=== PATIENT | male | born 1970 | race Caucasian/White ===

== ENCOUNTER 2022-10-16 09:56 | Outpatient (AMB) | payer BC, SELFPAY ==
[2022-10-16 10:08] VITALS: BP 161/96; PULSE 82; BMI 31.0
--- NOTE | 2022-10-16 10:08 | MHC.OFFVIS ---
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 male with past medical history hypertension obesity, prostate CA is here for initial consultation. He is accompanied by his twin sister. Patient was sent by his oncologist for evaluation. Patient has been complaining of severe abdominal pain and diarrhea for the last 3 weeks. Patient reports to have several loose stools a day. Patient denies melena, hematochezia, unintentional weight loss or like stools. Patient reports weight gain of 7 lb in 1 week. Patient reports that his bowel pattern changed. Now he has been constipated for the past 2 days. Patient reports abdominal discomfort to right and left lower quadrant. Patient had abdominal x-ray with no acute finding per patient. Patient also had ultrasound of abdomen that did not show any acute processes. Patient does drink alcohol daily, 3 beers a day. Patient is not on any particular diet. No diet restrictions. Eats everything mostly cheeseburgers, no fiber. He is not taking anything [id number] to help him move his bowels. Patient denies dyspepsia, dysphagia or odynophagia. Patient denies any nausea or vomiting. States that he is passing gas. Last bowel movement today. Reports to be very hard and small amount. Patient reports that he had colonoscopy last year, showed no polyps and he was told to return for colorectal screening in 10 years [facility] Medical History (Updated 10/16/22 @ 11:15 by Farzaneh Eubanks [facility]) HTN (hypertension) Low back pain Obesity Prostate cancer Surgical History (Updated 10/16/22 @ 10:19 by Larry Barrow) Hx of right knee surgery Hx of shoulder surgery Social History (Updated 10/16/22 @ 10:18 by Larry Barrow) Household Members: Significant Other Alcohol intake: current Alcohol intake frequency: 0-2 drinks per day Alcohol type: beer Patient Tobacco Use Status: Current everyday Tobacco user Cigarette Packs Per Day: 1 Cigarettes Per Day: 20 e-Cigarette/Vaping Use: Never Used Review of Systems Const Reports weight gain (7 lb in 1 week) and Denies weight loss ENT Reports no additional complaints, Denies dysphagia and Denies odynophagia Card Reports no additional complaints Resp Reports no additional complaints GI Reports abdominal pain (Lower abdomen), Denies belching, Denies melena, Reports bloating, Reports constipation, Denies dysphagia, Denies excessive flatus, Denies dyspepsia, Denies heartburn, Denies diarrhea, Denies loose stools, Denies nausea, Denies odynophagia and Denies vomiting Reports no additional complaints Musc Reports no additional complaints Neuro Reports no additional complaints Psych Reports no additional complaints Endo Reports no additional complaints Physical Exam Vital Signs: Last Vital Signs Pulse 82 10/16/22 10:08 BP 161/96 H 10/16/22 10:08 BMI result Body Mass Index 31.0 Const General: healthy appearing, no acute distress and well developed Nutritional Appearance: obese Orientation/consciousness: patient oriented x3 HEENT Head: Yes normal to inspection, Yes normocephalic and Yes atraumatic Face and sinus: Yes normal facial exam Mouth: Normal oral and palatal mucosa present Throat: Yes posterior oropharynx normal, Yes tonsils normal and Yes uvula midline Eyes General: appearance normal, both eyes and all related structures Neck Neck: Yes normal visual inspection, Yes full ROM and Yes trachea midline Thyroid: Thyroid normal Resp Effort & Inspection: normal respiratory effort, able to speak in complete sentences, no tracheal deviation and symmetric chest movement Auscultation: clear to auscultation bilaterally Cardio Rate: regular rate Heart sounds: S1 normal heart sound present and S2 normal heart sound present GI Inspection: Yes normal to inspection, Yes distended (Mild distension, soft) and Yes obesity Palpation (GI): Soft to palpation, not firm, nontender and No hepatosplenomegaly present Auscultation: normal bowel sounds General: Yes no CVA tenderness Back/Spine/Pelvis Back: no CVA tenderness Skin General skin exam: elasticity normal, turgor normal and dry skin Neuro General: patient oriented x3 Psych Appearance: grossly normal Mental Status: mental status grossly normal Speech and movement: Normal speech and movement present Affect: normal affect Assessment & Plan Assessment & Plan (1) Continuous severe abdominal pain: Code(s): R10.9 - Unspecified abdominal pain Plan: Reports lower abdominal discomfort. Patient states that he is constipated now. Will send script lactulose and MiraLax. We will due CT scan with IV and oral contrast to rule out diverticulitis, colitis, appendicitis. Patient does not have any nausea or vomiting. He has good bowel sounds, passing gas. Will check lipase, liver profile (2) Postprandial abdominal bloating: Code(s): R14.0 - Abdominal distension (gaseous) Plan: Postprandial abdominal bloating most likely related to patient not emptying his bowels completely. I will see him in 2 weeks, sooner on as needed basis. Patient will call the office if he will continue to be constipated despite current treatment. Patient is agreeable to this plan and verbalizes understanding of instructions. Both patient and his sister were given the opportunity to ask questions and all questions answered. Thank you for allowing me to participate in his care Orders: Orders Bilirubin Direct Today R17 - Unspecified jaundice Comprehensive Met. Panel Today K21.9 - Gastro-esophageal reflux disease without esophagitis Gamma Glutamyl Transpeptidase Today R74.8 - Abnormal levels of other serum enzymes Lipase Today R10.9 - Unspecified abdominal pain CT abdomen pelvis w IV con Today R10.9 - Unspecified abdominal pain Medications: New polyethylene glycol 3350 (Miralax) 17 grams PO DAILY 510 grams 2RF lactulose 10 grams (15 mL) PO BID 473 mL 0RF K59.09 - Other constipation Coding Level of Care Code New Pt Level 4 (56549) Diagnoses Continuous severe abdominal pain R10.9 Postprandial abdominal bloating R14.0 Time Spent (min) 45 Comment 30 minutes spent with patient and additional 15 minutes spent reviewing his records
== END 2022-10-16 10:45 | disposition home or self-care (01) ==
PROVIDERS: PCP Internal Medicine; Visit Provider Nurse Practitioner Family
DX: R10.9 Unspecified abdominal pain (principal); R14.0 Abdominal distension (gaseous)
CPT/HCPCS: 99204

== ENCOUNTER 2022-10-16 09:56 | Outpatient (REF) | payer BC, SELFPAY ==
[2022-10-16 12:23] LABS: Alanine Aminotransferase 10 U/L (0-40); Albumin Level 4.1 g/dL (3.5-5.0); Alkaline Phosphatase 108 U/L (39-117); Anion Gap 11 (12-20); Aspartate Amino Transferase 17 U/L (5-37); Bilirubin Direct 0.1 mg/dL (0.0-0.5); Bilirubin Total 0.3 mg/dL (0.0-1.0); Blood Urea Nitrogen 19 mg/dL (9-16); Calcium 9.4 mg/dL (8.4-10.2); Carbon Dioxide 25 mmol/L (22-29); Chloride 108 mmol/L (96-108); Estimated Glomerular Filt Rate > 60; Glucose Random 96 mg/dL (60-115); Lipase 18 U/L (8-78); Potassium 4.8 mmol/L (3.3-5.1); Sodium 139 mmol/L (135-145); Total Protein 7.1 g/dL (6.5-8.0)
[2022-10-16 13:23] LABS: Gamma Glutamyl Transpeptidase 37 U/L (11-51)
== END 2022-10-16 09:57 | disposition home or self-care (01) ==
LOC: HO.LAB 09:56
PROVIDERS: PCP Internal Medicine; Visit Provider Nurse Practitioner Family
DX: R10.9 Unspecified abdominal pain (principal); R74.8 Abnormal levels of other serum enzymes; K21.9 Gastro-esophageal reflux disease without esophagitis; R17 Unspecified jaundice; R14.0 Abdominal distension (gaseous)
CPT/HCPCS: 36415; 80053; 82248; 82977; 83690

== ENCOUNTER 2022-10-19 11:57 | Outpatient (REF) | payer BC, SELFPAY ==
--- NOTE | ~2022-10-19 | CT_ITS ---
EXAMINATION: CT ABDOMEN AND PELVIS WITH CONTRAST CLINICAL INFORMATION: Abdominal pain. COMPARISON: None available. TECHNIQUE: Multidetector volumetric images were obtained from the superior aspect of the liver through the pubic symphysis following administration 85 mL of Omnipaque 350 intravenous contrast. Sagittal and coronal reformatted images were obtained on the technologist's workstation. Oral contrast: No This CT examination was performed using dose optimization techniques as appropriate, variously including the following: *Automated exposure control *Adjustment of mA and/or kV according to patient size (this includes techniques or standardized protocols for targeted exams where dose is matched to indication/reason for exam; i.e. extremities or head) *Use of iterative reconstruction technique DLP: 739 mGy-cm FINDINGS: LUNG BASES: The visualized lung bases are unremarkable. LIVER, GALLBLADDER, AND BILIARY TREE: The liver is normal in size, shape, and attenuation. No focal hepatic lesion or biliary ductal dilatation is present. The gallbladder is unremarkable with no evidence of radiopaque gallstones, gallbladder wall thickening, or obvious pericholecystic inflammatory changes. PANCREAS: Unremarkable. SPLEEN: Unremarkable. ADRENAL GLANDS: Unremarkable. KIDNEYS AND URETERS: There is mild hydronephrosis of both kidneys with bilateral hydroureter. No renal or ureteral calculus. No renal mass. There is asymmetric enhancement of the parenchyma of the kidneys. The right kidney is denser enhancement compared the left kidney. BLADDER: Mild bladder wall thickening posteriorly. There is stranding density and lobular mass at the anterior wall the bladder concerning for metastatic disease. Sagittal image 46/47 series 3. PELVIS/GASTROINTESTINAL TRACT: There is a lobulated mass in the pelvis in the area the prostate. Suspicious for neoplasm. This measures 6 x 5 x 6 cm in size. This lobulated mass borders the rectum and sigmoid. The rectum and sigmoid are compressed by the mass and may be involving the midportion masses as there is loss of fat plane between the bowel and this mass. There is no obstruction or bowel. There are a few diverticula in the left colon and sigmoid but no diverticulitis. The appendix is normal. The small bowel loops are unremarkable. Stomach is normal. There is a small hiatal hernia. ABDOMINAL WALL: Small fat-containing right inguinal hernia. LYMPH NODES: There are enlarged lymph nodes consistent with metastatic disease. There are lymph nodes in the right and left pelvic sidewall the low pelvis measuring up to about 2 cm. Largest lymph nodes along the iliac chain in the retroperitoneum and periaortic or caval region of the retroperitoneum. There are lymph nodes around the left renal vascular pedicle, greater on the left than the right. There is a borderline enlarged lymph node in the retrocrural region. VASCULAR: There is normal enhancement of the vasculature of the abdomen and the pelvis. Small volume of scattered vascular calcifications of aorta and iliac arteries. As noted above there is diminished density in the left kidney parenchyma relative to the right raising question of compromised perfusion of the left kidney though the renal artery and renal vein are well opacified on this exam. OSSEOUS STRUCTURES: Extensive osseous metastatic disease throughout the entire visualized skeleton with osteoblastic metastatic lesions. No acute fracture. CT/CT abdomen pelvis w IV con IMPRESSION: 1. Lobulated mass in the pelvis in the area of the prostate suspicious for neoplasm. 2. Pelvic and retroperitoneal lymphadenopathy consistent with metastatic disease. 3. Extensive osseous metastatic disease. 4. Mild hydronephrosis of both kidneys. No renal or ureteral calculus. There is diminished perfusion of the left kidney relative to the right raising question of compromised perfusion of the left kidney though the renal artery and renal vein are well opacified on this exam. Hydronephrosis may be causing the decreased perfusion rather than vascular compromise. Enlarged lymph nodes are greater in the left retroperitoneum and pelvis relative to the right side of the retroperitoneum and pelvis. Fleischner guidelines were followed. This result was discussed with Nurse Cara Travis on 10/19/2022, 3:30 PM and it was ascertained that the content and urgency of the report was understood at the time of direct communication.
[2022-10-19] MEDS: iohexoL 350 MG/ML 100 ML INFUS..BTL IV (14:07)
[2022-10-19] MEDS: Barium Sulfate Oral (Mocha) 450 ML ORAL.SUSP PO ×2 (14:09→14:10)
== END 2022-10-19 11:58 | disposition home or self-care (01) ==
LOC: HO.CT 11:57
PROVIDERS: PCP Internal Medicine; Visit Provider Nurse Practitioner Family
DX: R10.9 Unspecified abdominal pain (principal)
CPT/HCPCS: 74177; Q9967

== ENCOUNTER 2022-10-26 11:51 | Day surgery (SDC) | payer BC, SELFPAY ==
[2022-10-26] MEDS: Lactated Ringers 1,000 ML 50 ML IVCONT (13:01)
[2022-10-26] MEDS: Albuterol Sulfate (0.083%) 2.5 MG/3 ML VIAL.NEB INHALE (13:03)
[2022-10-26 13:05] VITALS: PULSE 76; RESP 16; O2SAT 98
[2022-10-26 13:17] VITALS: BP 179/82; PULSE 78; RESP 20; TEMP 36.1; O2SAT 95
[2022-10-26 13:19] VITALS: BMI 31.9
[2022-10-26 13:27] VITALS: BP 142/87
--- NOTE | 2022-10-26 13:51 | MHC.SHP ---
Pre-Procedural Eval Section A Date of Service: 10/26/22 The History & Physical has been completed within 30 days and I have reviewed it.: Yes Section B Chief Complaint: Abdominal distension (gaseous),abdominal pain Allergies: Allergies Allergy/AdvReac Type Severity Reaction Status Date / Time Penicillins [PENICILLINS] Allergy Mild HIVES Verified 10/26/22 13:02 sulfamethoxazole Allergy Unknown UNKNOWN Verified 10/26/22 13:02 [From BACTRIM] trimethoprim [From BACTRIM] Allergy Unknown UNKNOWN Verified 10/26/22 13:02 Plan Diagnosis/Plan: Unchanged I have reviewed the history and physical and performed a pertinent physical examination on my patient. No changes have occurred unless specified. Time Spent With Patient Time: Total time managing care of this patient today ____ minutes.
--- NOTE | 2022-10-26 13:54 | HO.ANESPROP2 ---
[facility] Past Medical History Medical History COPD (chronic obstructive pulmonary disease) History of swelling of feet HTN (hypertension) Jaundice Low back pain Obesity Prostate cancer Weight gain Family History Family history of problems with anesthesia: No Surgical History Surgical History Hx of colonoscopy Hx of esophagogastroduodenoscopy Hx of hernia repair Hx of right knee surgery Hx of shoulder surgery Hx of wisdom tooth extraction History of Problems with Anesthesia: No Social History Social History Household Members: Significant Other Alcohol intake: current Alcohol intake frequency: 3 or more drinks per day Alcohol type: beer Patient Tobacco Use Status: Current everyday Tobacco user Cigarette Packs Per Day: 1 Cigarettes Per Day: 20 e-Cigarette/Vaping Use: Never Used Are you DNR?: No Advance Directives: No Advance Directives Information Provided: Yes Meds Allergies Allergy/AdvReac Type Severity Reaction Status Date / Time Penicillins [PENICILLINS] Allergy Mild HIVES Verified 10/26/22 13:02 sulfamethoxazole Allergy Unknown UNKNOWN Verified 10/26/22 13:02 [From BACTRIM] trimethoprim [From BACTRIM] Allergy Unknown UNKNOWN Verified 10/26/22 13:02 Active Medications: Current Medications Albuterol Sulfate (Albuterol Sulfate (0.083%) 2.5 Mg/3 Ml Vial.Neb) 2.5 mg INHALE ONCE PRN PRN Reason: Shortness of Breath/Wheezing Last Admin: 10/26/22 13:03 Dose: 2.5 mg Lactated Ringer's (Lr) 1,000 mls @ 50 mls/hr IVCONT .Q20H IAN Last Admin: 10/26/22 13:01 Dose: 50 mls/hr Home Medications Medication Instructions Recorded Confirmed Last Taken Type abiraterone 500 mg tablet 1,000 mg PO DAILY 10/16/22 10/26/22 10/26/22 History gabapentin 300 mg capsule 300 mg PO TID 10/16/22 10/26/22 10/26/22 History lisinopril 20 mg tablet 20 mg PO DAILY 10/16/22 10/26/22 10/26/22 History tamsulosin 0.4 mg capsule 0.4 mg PO DAILY 10/16/22 10/26/22 10/26/22 History acetaminophen 325 mg tablet 325 mg PO QID PRN Pain 10/26/22 10/26/22 10/09/22 History (Tylenol) fluticasone propionate 50 1 spray intranasal DAILY 10/26/22 10/26/22 10/09/22 History mcg/actuation nasal spray,suspension ipratropium 20 mcg-albuterol 100 1 puff inhalation QID 10/26/22 10/26/22 10/25/22 History mcg/actuation mist for inhalation (Combivent Respimat) oxycodone 20 mg tablet,crush 20 mg PO BID 10/26/22 10/26/22 10/17/22 History resistant,extended release 12 hr (OxyContin) Exam Exam Date and Time: October 26, 2022 1354 Height,Weight and Vital Signs: Height 5 ft 8 in Weight 95.254 kg Last Vital Signs Temp 97 F 10/26/22 13:17 Pulse 78 10/26/22 13:17 Resp 20 10/26/22 13:17 BP 142/87 H 10/26/22 13:27 Pulse Ox 95 10/26/22 13:17 O2 Del Method Room Air 10/26/22 13:17 Airway Mallampati Class: III TM Dist: >3cm Neck ROM: Full Loose/Missing/Broken Teeth: No (rrr) Lungs: scattered rales and wheezes Assessment and Plan Final Anesthetic Review Family History of Problems with Anesthesia: No History of Problems with Anesthesia: No NPO: Yes ASA Class: IV Final Preanesthetic Review: No Changes in Pt Med Stat, Meds/Allgs Chart Reviewed, Consent Obtained/Reviewed and Anes Risks/Benef Reviewed Patient Risk: Intermediate Procedure Risk: Low Anesthetic Plan Anesthetic Plan: MAC: Disposition: Standard PACU
[2022-10-26 14:52] VITALS: BP 129/61; PULSE 90; RESP 16; TEMP 37.3; O2SAT 96
--- NOTE | 2022-10-26 14:52 | P.OP_ITS ---
Operative Note Operative Note Date of Service: 10/26/22 Narrative: Procedure:?Esophagogastroduodenoscopy and colonoscopy Endoscopist:?Mer Drummond MD Indication:?Abd pain, rectal bleeding Anesthesia Provider: Malorie Hernandez CRNA Anesthesia Type:?MAC Instrument:?Olympus GIF-H190, PCF-H190L EGD Procedure:?? The procedure, indications, preparation and potential complications were reviewed with the patient, who indicated understanding and gave written informed consent to proceed. A physical exam was performed. The endoscope was introduced through the mouth, and advanced to the second part of duodenum. The mucosa was carefully examined on slow withdrawal of the endoscope.? There were no immediate complications.? Patient tolerated the procedure well. EGD Findings:? * Esophagus:? Normal mucosa noted in the entire esophagus.? The Z-line is at 40 cm.? * Stomach:? Normal gastric mucosa. Retroflexion was performed in the fundus and showed Hill grade II hiatal hernia. Cold forceps mapping biopsies were taken as per Elisabeth protocol for histology given hx of metastatic neoplasm. * Duodenum:? Erythema and edema of the duodenal bulb consistent with peptic duodenitis.? Cold forceps biopsies were taken to rule out celiac disease. Colonoscopy Procedure:? The patient was then turned for the colonoscopy. A digital rectal exam was performed which was normal.? A distal attachment cap was affixed to the tip of the scope and the colonoscope was then inserted through the anus and advanced through the colon to the cecum at 75 cm and terminal ileum. Appendiceal orifice and ileocecal valve were identified. Mucosa was carefully examined under high definition white light as the instrument was slowly withdrawn in a retrograde panoramic fashion. Retroflexion could not be performed in rectum due to narrowed rectal vault, see below. The procedure was not difficult. There were no immediate obvious complications. The quality of the prep was BBPS: 2+2+3 = adequate Withdrawal time: 12 minutes Limitations: No limitation. Findings: Mucosa: Extrinsic compression effect was noted in the proximal rectum and distal sigmoid colon but PCF scope traversed easily. Normal mucosa to cecum and terminal ileum.? Protruding lesions: * Medium internal hemorrhoids without stigmata of recent bleeding. Excavated lesions: * Scattered diverticulosis of left colon. Impression: 1. Normal esophageal mucosa 2. Normal stomach mucosa (mapping biopsy) 3. Peptic duodenitis (biopsy) 4. Extrinsic compression of rectosigmoid 5. Normal colon and terminal ileum mucosa 6. Diverticulosis 7. Internal hemorrhoids Recommendations:?? * Await pathology results.? * Repeat colonoscopy for asymptomatic colon cancer screening in 10 years depending on overall clinical course. * Of note - pt appeared jaundiced on exam so LFTs have been ordered.
[2022-10-26 15:07] VITALS: BP 128/95; PULSE 92; RESP 18; TEMP 37.1; O2SAT 98
[2022-10-26 15:45] LABS: Alanine Aminotransferase 12 U/L (0-40); Albumin Level 3.9 g/dL (3.5-5.0); Alkaline Phosphatase 119 U/L (39-117); Aspartate Amino Transferase 19 U/L (5-37); Bilirubin Direct 0.1 mg/dL (0.0-0.5); Bilirubin Total 0.3 mg/dL (0.0-1.0)
== END 2022-10-26 14:55 | disposition home or self-care (01) ==
PROVIDERS: PCP Internal Medicine; Visit Provider Internal Medicine
PROC: (CPT 45378; principal; 2022-10-26 14:30)
DX: K62.5 Hemorrhage of anus and rectum (principal); K57.30 Diverticulosis of large intestine without perforation or abscess without bleeding; K62.4 Stenosis of anus and rectum; K64.8 Other hemorrhoids; K59.09 Other constipation; R10.9 Unspecified abdominal pain; R14.0 Abdominal distension (gaseous); K29.80 Duodenitis without bleeding; K21.9 Gastro-esophageal reflux disease without esophagitis; K44.9 Diaphragmatic hernia without obstruction or gangrene; C61 Malignant neoplasm of prostate; J44.9 Chronic obstructive pulmonary disease, unspecified; I10 Essential (primary) hypertension; E66.9 Obesity, unspecified; Z68.31 Body mass index [BMI] 31.0-31.9, adult; R74.8 Abnormal levels of other serum enzymes; R17 Unspecified jaundice; Z79.51 Long term (current) use of inhaled steroids; Z79.899 Other long term (current) drug therapy; Z88.0 Allergy status to penicillin; Z88.2 Allergy status to sulfonamides; F17.210 Nicotine dependence, cigarettes, uncomplicated
CPT/HCPCS: 45378; 43239; 36415; 80076; 88305; 88342; 94640

== ENCOUNTER → 2022-10-26 11:51 | Outpatient (BNV) | payer BC, SELFPAY | PROVIDERS: PCP Internal Medicine; Visit Provider Internal Medicine | DX: R10.9 Unspecified abdominal pain (principal); K62.5 Hemorrhage of anus and rectum; K64.8 Other hemorrhoids; K57.30 Diverticulosis of large intestine without perforation or abscess without bleeding | CPT/HCPCS: 43239; 45378 ==

== ENCOUNTER 2022-10-30 09:20 | Outpatient (AMB) | payer BC, SELFPAY ==
[2022-10-30 09:30] VITALS: BP 175/98; PULSE 75; BMI 30.7
--- NOTE | 2022-10-30 09:30 | A.OFFVIS_ITS ---
Intake Vital Signs 10/30/22 09:30 Height 5 ft 8 in Weight 201 lb 15.095 oz BMI 30.7 BP 175/98 H Blood Pressure Location Lt brachial Position Sitting Pulse 75 Intake Visit Reasons: 2 week follow up Intake Note: Paulino presents in office as a est.patient for a 2week f/u for abdominal pain. 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: No Accompanied by: Significant Other Allergies Penicillins [PENICILLINS] Allergy (Mild, Verified 10/30/22 09:30) HIVES sulfamethoxazole [From BACTRIM] Allergy (Unknown, Verified 10/30/22 09:30) UNKNOWN trimethoprim [From BACTRIM] Allergy (Unknown, Verified 10/30/22 09:30) UNKNOWN Medication List - Last Reconciled 10/30/22 by Farzaneh Eubanks, [facility]- abiraterone 1,000 mg PO DAILY acetaminophen (Tylenol) 325 mg PO QID PRN docusate sodium 200 mg PO DAILY fluticasone propionate 50 mcg/actuation 1 spray intranasal DAILY gabapentin 300 mg PO TID ipratropium-albuterol 20-100 mcg/actuation (Combivent Respimat) 1 puff inhalation QID lisinopril 20 mg PO DAILY oxycodone ER (OxyContin) 20 mg PO BID polyethylene glycol 3350 (Miralax) 17 grams PO DAILY sennosides (Natural Senna Laxative) 17.2 mg (2 x 8.6 mg) PO BEDTIME tamsulosin 0.4 mg PO DAILY HPI 2 week follow up HPI Details LAST VISIT Continuous severe abdominal pain Reports lower abdominal discomfort. Patient states that he is constipated now. Will send script lactulose and MiraLax. We will due CT scan with IV and oral contrast to rule out diverticulitis, colitis, appendicitis. Patient does not have any nausea or vomiting. He has good bowel sounds, passing gas. Will check lipase, liver profile Postprandial abdominal bloating Postprandial abdominal bloating most likely related to patient not emptying his bowels completely. I will see him in 2 weeks, sooner on as needed basis. Patient will call the office if he will continue to be constipated despite current treatment. Patient is agreeable to this plan and verbalizes understanding of instructions. Both patient and his sister were given the opportunity to ask questions and all questions answered. ? Thank you for allowing me to participate in his care Plan Orders Orders Bilirubin Direct Today R17 Comprehensive Met. Panel Today K21.9 Gamma Glutamyl Transpeptidase Today R74.[address] abdomen pelvis w IV con Today R10.9 Medications New polyethylene glycol 3350 (Miralax) 17 grams PO DAILY 510 grams 2RF lactulose 10 grams (15 mL) PO BID 473 mL 0RF K59.09 UPPER ENDOSCOPY AND COLONOSCOPY EGD Procedure:?? The procedure, indications, preparation and potential complications were reviewed with the patient, who indicated understanding and gave written informed consent to proceed. A physical exam was performed. The endoscope was introduced through the mouth, and advanced to the second part of duodenum. The mucosa was carefully examined on slow withdrawal of the endoscope.? There were no immediate complications.? Patient tolerated the procedure well. EGD Findings:? * Esophagus:? Normal mucosa noted in the entire esophagus.? The Z-line is at 40 cm.? * Stomach:? Normal gastric mucosa. Retroflexion was performed in the fundus and showed Hill grade II hiatal hernia. Cold forceps mapping biopsies were taken as per Elisabeth protocol for histology given hx of metastatic neoplasm. * Duodenum:? Erythema and edema of the duodenal bulb consistent with peptic duodenitis.? Cold forceps biopsies were taken to rule out celiac disease. Colonoscopy Procedure:? The patient was then turned for the colonoscopy. A digital rectal exam was performed which was normal.? A distal attachment cap was affixed to the tip of the scope and the colonoscope was then inserted through the anus and advanced through the colon to the cecum at 75 cm and terminal ileum. Appendiceal orifice and ileocecal valve were identified. Mucosa was carefully examined under high definition white light as the instrument was slowly withdrawn in a retrograde panoramic fashion. Retroflexion could not be performed in rectum due to narrowed rectal vault, see below. The procedure was not difficult. There were no immediate obvious complications. The quality of the prep was BBPS: 2+2+3 = adequate Withdrawal time: 12 minutes Limitations: No limitation. Findings: Mucosa: Extrinsic compression effect was noted in the proximal rectum and distal sigmoid colon but PCF scope traversed easily. Normal mucosa to cecum and terminal ileum.? Protruding lesions: * Medium internal hemorrhoids without stigmata of recent bleeding. Excavated lesions: * Scattered diverticulosis of left colon. Impression: 1. Normal esophageal mucosa 2. Normal stomach mucosa (mapping biopsy) 3. Peptic duodenitis (biopsy) 4. Extrinsic compression of rectosigmoid 5. Normal colon and terminal ileum mucosa 6. Diverticulosis 7. Internal hemorrhoids Recommendations:?? * Await pathology results.? * Repeat colonoscopy for asymptomatic colon cancer screening in 10 years depending on overall clinical course. * Of note - pt appeared jaundiced on exam so LFTs have been ordered. TODAY'S VISIT: Patient is here today for follow-up and to discuss colonoscopy results. Patient was found to have no polyps. Patient continues to have severe abdominal discomfort usually in the left lower quadrant. CT of abdomen showed large pressing prostate tumor. Most likely the reason why patient is unable to evacuate his bowels well. Long discussion with patient and his sister. They will go back to [facility] to see Oncology for 2nd opinion as well as General surgery. Prostate CA spread to lymph nodes as well as fine. Patient's pain could be related to lymph nodes, tumor pressing on a nerve pathway. Patient will need to be evaluated with MRI possibly. CT scan results discussed with general surgery Dr. Trinh. Colonoscopy and normal lab results discussed with Dr. Drummond who performed the procedure. Patient had normal liver function tests. Patient denies melena, hematochezia, unintentional weight loss or ribbon like stools. Patient reports that he is not drinking alcohol anymore. [facility] Medical History COPD (chronic obstructive pulmonary disease) History of swelling of feet HTN (hypertension) Jaundice Low back pain Obesity Prostate cancer Weight gain Surgical History Hx of colonoscopy Hx of esophagogastroduodenoscopy Hx of hernia repair Hx of right knee surgery Hx of shoulder surgery Hx of wisdom tooth extraction Social History Household Members: Significant Other Alcohol intake: current Alcohol intake frequency: 3 or more drinks per day Alcohol type: beer Patient Tobacco Use Status: Current everyday Tobacco user Cigarette Packs Per Day: 1 Cigarettes Per Day: 20 e-Cigarette/Vaping Use: Never Used Review of Systems Const Denies weight gain and Denies weight loss ENT Reports no additional complaints, Denies dysphagia and Denies odynophagia Card Reports no additional complaints Resp Reports no additional complaints GI Reports abdominal pain, Denies belching, Denies melena, Reports bloating, Denies change in bowel habits, Reports constipation, Denies dysphagia, Denies excessive flatus, Denies dyspepsia, Denies heartburn, Denies diarrhea, Denies loose stools, Denies nausea, Denies odynophagia and Denies vomiting Reports no additional complaints Musc Reports no additional complaints Neuro Reports no additional complaints Psych Reports no additional complaints Endo Reports no additional complaints Physical Exam Vital Signs: Last Vital Signs Pulse 75 10/30/22 09:30 BP 175/98 H 10/30/22 09:30 BMI result Body Mass Index 30.7 Const General: well developed, alert and in distress Nutritional Appearance: obese Orientation/consciousness: patient oriented x3 HEENT Head: Yes normal to inspection, Yes normocephalic and Yes atraumatic Face and sinus: Yes normal facial exam Mouth: Normal oral and palatal mucosa present Throat: Yes posterior oropharynx normal, Yes tonsils normal and Yes uvula midline Eyes General: appearance normal, both eyes and all related structures Neck Neck: Yes normal visual inspection, Yes full ROM and Yes trachea midline Thyroid: Thyroid normal Resp Effort & Inspection: normal respiratory effort, able to speak in complete sentences, no tracheal deviation and symmetric chest movement Auscultation: clear to auscultation bilaterally Cardio Rate: regular rate Heart sounds: S1 normal heart sound present and S2 normal heart sound present GI Inspection: Yes normal to inspection, No distended and Yes obesity Palpation (GI): Soft to palpation, not firm, nontender and No hepatosplenomegaly present Auscultation: normal bowel sounds General: Yes no CVA tenderness Back/Spine/Pelvis Back: no CVA tenderness Skin General skin exam: elasticity normal, turgor normal and dry skin Neuro General: patient oriented x3 Psych Appearance: grossly normal Mental Status: mental status grossly normal Speech and movement: Normal speech and movement present Affect: normal affect Results Reviewed Results Reviewed: CT SCAN RESULTS 10/19/2022 FINDINGS: LUNG BASES: The visualized lung bases are unremarkable.? LIVER, GALLBLADDER, AND BILIARY TREE: The liver is normal in size, shape, and attenuation. No focal hepatic lesion or biliary ductal dilatation is present. The gallbladder is unremarkable with no evidence of radiopaque gallstones, gallbladder wall thickening, or obvious pericholecystic inflammatory changes.? PANCREAS: Unremarkable.? SPLEEN: Unremarkable.? ADRENAL GLANDS: Unremarkable.? KIDNEYS AND URETERS: There is mild hydronephrosis of both kidneys with bilateral hydroureter. No renal or ureteral calculus. No renal mass. There is asymmetric enhancement of the parenchyma of the kidneys. The right kidney is denser enhancement compared the left kidney.? BLADDER: Mild bladder wall thickening posteriorly. There is stranding density and lobular mass at the anterior wall the bladder concerning for metastatic disease. Sagittal image 46/47 series 3. PELVIS/GASTROINTESTINAL TRACT: There is a lobulated mass in the pelvis in the area the prostate. Suspicious for neoplasm. This measures 6 x 5 x 6 cm in size. This lobulated mass borders the rectum and sigmoid. The rectum and sigmoid are compressed by the mass and may be involving the midportion masses as there is loss of fat plane between the bowel and this mass. There is no obstruction or bowel. There are a few diverticula in the left colon and sigmoid but no diverticulitis. The appendix is normal. The small bowel loops are unremarkable. Stomach is normal. There is a small hiatal hernia. ABDOMINAL WALL: Small fat-containing right inguinal hernia.? LYMPH NODES: There are enlarged lymph nodes consistent with metastatic disease. There are lymph nodes in the right and left pelvic sidewall the low pelvis measuring up to about 2 cm. Largest lymph nodes along the iliac chain in the retroperitoneum and periaortic or caval region of the retroperitoneum. There are lymph nodes around the left renal vascular pedicle, greater on the left than the right. There is a borderline enlarged lymph node in the retrocrural region. VASCULAR: There is normal enhancement of the vasculature of the abdomen and the pelvis. Small volume of scattered vascular calcifications of aorta and iliac arteries. As noted above there is diminished density in the left kidney parenchyma relative to the right raising question of compromised perfusion of the left kidney though the renal artery and renal vein are well opacified on this exam. OSSEOUS STRUCTURES: Extensive osseous metastatic disease throughout the entire visualized skeleton with osteoblastic metastatic lesions. No acute fracture.? CT/CT abdomen pelvis w IV con IMPRESSION: 1.? Lobulated mass in the pelvis in the area of the prostate suspicious for neoplasm. 2.? Pelvic and retroperitoneal lymphadenopathy consistent with metastatic disease. 3.? Extensive osseous metastatic disease. 4.? Mild hydronephrosis of both kidneys. No renal or ureteral calculus. There is diminished perfusion of the left kidney relative to the right raising question of compromised perfusion of the left kidney though the renal artery and renal vein are well opacified on this exam. Hydronephrosis may be causing the decreased perfusion rather than vascular compromise. Enlarged lymph nodes are greater in the left retroperitoneum and pelvis relative to the right side of the retroperitoneum and pelvis. ? Laboratory Tests 10/16/22 10/26/22 11:15 15:23 BUN 19 H Creatinine 1.13 Total Bilirubin 0.3 Direct Bilirubin 0.1 AST 19 ALT 12 Lipase 18 Assessment & Plan Assessment & Plan (1) Continuous severe abdominal pain: Code(s): R10.9 - Unspecified abdominal pain Plan: Patient continues with severe abdominal discomfort. Most likely related to constipation as well as increased lymph nodes, mass pressing against nerve pathway. Patient does have pain that radiates to his lower extremities. Patient also has increase swelling into his left lower extremity. CT scan showed lymph node pressing on left renal artery and vein. Patient will meet MRI with or without IV contrast to better differentiate. (2) Postprandial abdominal bloating: Code(s): R14.0 - Abdominal distension (gaseous) Plan: Postprandial abdominal bloating. Discussed with patient diet elimination. Patient will avoid drinking beer. Patient will need to improve his Bowel movements, increase fluid intake and activity to promote better bowel motility. (3) Constipation: Code(s): K59.00 - Constipation, unspecified Qualifiers: Constipation type: outlet dysfunction constipation Qualified Code(s): K59.02 - Outlet dysfunction constipation Plan: Prostate mass is pressing on patient's rectum and patient has a difficulty of moving his bowels. Will have patient continue taking Colace 2 capsules daily may increase to twice a day if necessary. Patient can take MiraLax as well as senna. Patient is taking oxycodone for pain relief that might be vomiting him up as well. Patient might need to go and see a surgeon to have palliative colostomy. Patient will follow-up with oncologist in [place] as well as 1 in [place] that he originally saw. Patient will return in our office in 4 weeks, sooner on as needed basis. Both patient and his twin sister are agreeable to plan of care and verbalizes understanding of instructions. They were given the opportunity to ask questions and all questions answered. Thank you for allowing me to participate in his care Orders: Orders MR pelvis wo/w con 10/30/22 R10.9 - Unspecified abdominal pain Complete Blood Count no Diff 10/30/22 R10.9 - Unspecified abdominal pain Coding Level of Care Code Est Pt Level 5 (25650) Diagnoses Continuous severe abdominal pain R10.9 Postprandial abdominal bloating R14.0 Constipation K59.02 Constipation type: outlet dysfunction constipation Time Spent (min) 55 Comment 30 min spent with patient and add 25 min spent rev. his records and cons. w/ GS and GI
== END 2022-10-30 10:16 | disposition home or self-care (01) ==
PROVIDERS: PCP Internal Medicine; Visit Provider Nurse Practitioner Family
DX: K59.02 Outlet dysfunction constipation (principal)
CPT/HCPCS: 99215

== ENCOUNTER 2022-10-30 09:20 | Outpatient (REF) | payer BC, SELFPAY ==
[2022-10-30 11:51] LABS: Hematocrit 36.6 % (42.0-52.0); Hemoglobin 12.1 g/dl (14.0-18.0); Mean Corpuscular HGB Conc 33.1 g/dl (31.0-36.0); Mean Corpuscular Hemoglobin 33.3 pg (27.0-33.0); Mean Corpuscular Volume 100.8 fL (80.0-98.0); Mean Platelet Volume 9.6 fL (9.4-12.4); Platelet Count 305 X10*3/uL (160-400); Red Blood Count 3.63 X10*6/uL (4.60-5.80); Red Cell Distribution Width 11.4 % (11.0-16.0); White Blood Count 8.8 X10*3/uL (4.8-10.8)
== END 2022-10-30 09:21 | disposition home or self-care (01) ==
LOC: HO.LAB 09:20
PROVIDERS: PCP Internal Medicine; Visit Provider Nurse Practitioner Family
DX: R10.9 Unspecified abdominal pain (principal); R14.0 Abdominal distension (gaseous); K59.02 Outlet dysfunction constipation; Z79.899 Other long term (current) drug therapy
CPT/HCPCS: 36415; 85027

== ENCOUNTER 2022-11-28 09:37 | Outpatient (AMB) | payer BC, SELFPAY ==
[2022-11-28 09:44] VITALS: BP 113/73; PULSE 76; BMI 27.6
--- NOTE | 2022-11-28 09:44 | A.OFFVIS_ITS ---
Intake Vital Signs 11/28/22 09:44 Height 5 ft 8 in Weight 181 lb 10.574 oz BMI 27.6 BP 113/73 Blood Pressure Location Lt brachial Position Sitting Pulse 76 Intake Visit Reasons: 4 week follow up Intake Note: Paulino presents in office as a est.patient for a f/u for Constipation PT CC: pt reports having abdominal pain , constipation pt denies any other GI Issues Instrument Room Technician Required: No Accompanied by: Self / Same As Patient Allergies Penicillins [PENICILLINS] Allergy (Mild, Verified 11/28/22 09:45) HIVES sulfamethoxazole [From BACTRIM] Allergy (Unknown, Verified 11/28/22 09:45) UNKNOWN trimethoprim [From BACTRIM] Allergy (Unknown, Verified 11/28/22 09:45) UNKNOWN HPI 4 week follow up HPI Details LAST VISIT Continuous severe abdominal pain Patient continues with severe abdominal discomfort. Most likely related to constipation as well as increased lymph nodes, mass pressing against nerve pathway. Patient does have pain that radiates to his lower extremities. Patient also has increase swelling into his left lower extremity. CT scan showed lymph node pressing on left renal artery and vein. Patient will meet MRI with or without IV contrast to better differentiate. Postprandial abdominal bloating Postprandial abdominal bloating. Discussed with patient diet elimination. Patient will avoid drinking beer. Patient will need to improve his Bowel movements, increase fluid intake and activity to promote better bowel motility. Constipation Prostate mass is pressing on patient's rectum and patient has a difficulty of moving his bowels. Will have patient continue taking Colace 2 capsules daily may increase to twice a day if necessary. Patient can take MiraLax as well as senna. Patient is taking oxycodone for pain relief that might be vomiting him up as well. Patient might need to go and see a surgeon to have palliative colostomy. Patient will follow-up with oncologist in [place] as well as 1 in [facility] at he originally saw. Patient will return in our office in 4 weeks, sooner on as needed basis. Both patient and his twin sister are agreeable to plan of care and verbalizes understanding of instructions. They were given the opportunity to ask questions and all questions answered. ? Thank you for allowing me to participate in his care Plan Orders Orders MR pelvis wo/w con 10/30/22 R10.9 Complete Blood Count no Diff 10/30/22 R10.9 TODAY'S VISIT: Patient is here today follow-up. Patient has not done his MRI yet as he was admitted to the hospital. Patient stated at [facility] and discharged last week. He went into acute kidney failure. Started his radiation for prostate C A, however radiation was soft as the mass was too big. Patient currently is on chemotherapy. Port-A-Cath was placed while he was in the hospital. Patient was unable to urinate. Nephrostomy tubes were placed. Patient is under care of oncologist in [place]. Currently patient reports that he is moving his bowels better. Denies melena, hematochezia, unintentional weight loss or ribbon like stools. Patient reports less bloating. Patient denies any nausea or vomiting. Denies any other GI concerning symptoms. [facility] Medical History COPD (chronic obstructive pulmonary disease) History of swelling of feet HTN (hypertension) Jaundice Low back pain Obesity Prostate cancer Weight gain Surgical History Hx of colonoscopy Hx of esophagogastroduodenoscopy Hx of hernia repair Hx of right knee surgery Hx of shoulder surgery Hx of wisdom tooth extraction Social History Household Members: Significant Other Alcohol intake: current Alcohol intake frequency: 3 or more drinks per day Alcohol type: beer Patient Tobacco Use Status: Current everyday Tobacco user Cigarette Packs Per Day: 1 Cigarettes Per Day: 20 e-Cigarette/Vaping Use: Never Used Review of Systems Const Denies weight gain and Denies weight loss ENT Reports no additional complaints, Denies dysphagia and Denies odynophagia Card Reports no additional complaints Resp Reports no additional complaints GI Reports abdominal pain, Denies belching, Denies melena, Denies bloating, Reports constipation, Denies dysphagia, Denies excessive flatus, Denies dyspepsia, Rashi es heartburn, Denies diarrhea, Denies loose stools, Denies nausea, Denies odynophagia and Denies vomiting Details: Patient reports nephrostomy tube, draining clear yellow urine. No fever no chills, denies flank pain Musc Reports no additional complaints Neuro Reports no additional complaints Psych Reports no additional complaints Endo Reports no additional complaints Physical Exam Vital Signs: BMI result Body Mass Index 27.6 Const General: healthy appearing, no acute distress and well developed Nutritional Appearance: well nourished Orientation/consciousness: patient oriented x3 HEENT Head: Yes normal to inspection, Yes normocephalic and Yes atraumatic Face and sinus: Yes normal facial exam Mouth: Normal oral and palatal mucosa present Throat: Yes posterior oropharynx normal, Yes tonsils normal and Yes uvula midline Eyes General: appearance normal, both eyes and all related structures Neck Neck: Yes normal visual inspection, Yes full ROM and Yes trachea midline Thyroid: Thyroid normal Resp Effort & Inspection: normal respiratory effort, able to speak in complete sentences, no tracheal deviation and symmetric chest movement Auscultation: clear to auscultation bilaterally Cardio Rate: regular rate Heart sounds: S1 normal heart sound present and S2 normal heart sound present GI Inspection: Yes normal to inspection and No distended Palpation (GI): Soft to palpation, not firm, nontender and No hepatosplenomegaly present Auscultation: normal bowel sounds Other: Bilateral flanks nephrostomy tubes draining clear yellow urine Skin General skin exam: elasticity normal, turgor normal and dry skin Neuro General: patient oriented x3 Psych Appearance: grossly normal Mental Status: mental status grossly normal Speech and movement: Normal speech and movement present Assessment & Plan Assessment & Plan (1) Postprandial abdominal bloating: Code(s): R14.0 - Abdominal distension (gaseous) Plan: Continue eating smaller meals and more often. Low FODMAP diet discussed with patient. Patient will need to move his bowels daily. Reports improvement in symptoms. (2) Constipation: Code(s): K59.00 - Constipation, unspecified Qualifiers: Constipation type: drug induced constipation Qualified Code(s): K59.03 - Drug induced constipation Plan: Continue MiraLax Colace and senna. Patient was also encouraged to increase fluid intake. Please get records from last hospitalization at [facility]. Looking in to see if patient had MRI or any other scans. I will see patient in 3 months, sooner on as needed basis. Patient is agreeable to this plan and verbalizes understanding of instructions. He was given the opportunity to ask questions and all questions answered. Thank you for allowing me to participate in his care Medications: New docusate sodium 200 mg (2 x 100 mg) PO DAILY 180 caps 3RF polyethylene glycol 3350 (Miralax) 17 grams PO DAILY 510 grams 2RF Refilled sennosides (Natural Senna Laxative) 17.2 mg (2 x 8.6 mg) PO BEDTIME 180 tabs 3RF constipation K59.00 - Constipation, unspecified Coding Level of Care Code Est Pt Level 4 (31981) Diagnoses Postprandial abdominal bloating R14.0 Constipation K59.03 Constipation type: drug induced constipation Time Spent (min) 35 Comment 20 minutes spent with patient and additional 15 minutes spent reviewing his records
== END 2022-11-28 10:27 | disposition home or self-care (01) ==
PROVIDERS: PCP Internal Medicine; Visit Provider Nurse Practitioner Family
DX: R14.0 Abdominal distension (gaseous) (principal); K59.03 Drug induced constipation
CPT/HCPCS: 99214

== ENCOUNTER → 2022-11-28 09:37 | Outpatient (BNVA) | payer BC, SELFPAY | PROVIDERS: PCP Internal Medicine; Visit Provider Nurse Practitioner Family ==